=== PATIENT | female | born 1970 | race Caucasian/White ===

== ENCOUNTER 2019-11-29 04:40 | Emergency (ER) | payer MEDICAID ==
[~2019-11-29] VITALS: Ht 160 cm; Wt 56.7 kg
--- NOTE | 2019-11-29 04:40 | NUR ---
PT BIBA TO ER BED 10
[2019-11-29 04:41] VITALS: BP 148/82
--- NOTE | 2019-11-29 04:50 | NUR ---
PT ASSESSMENT COMPLETE. PT LAYING FLAT AND ATTACHED TO FULL MONITORING SYSTEM. BEDRAIL X2 UP. WILL CONTINUE TO MONITOR.
--- NOTE | 2019-11-29 05:10 | NUR ---
PT SCREAMING OUT IN PAIN. PT REPORTS 9/[address] THORNTON MADE AWARE.
[2019-11-29] MEDS ORDERED: diphenhydrAMINE 50 MG/ML VIAL IM ONE (05:15)
[2019-11-29] MEDS ORDERED: MORPHINE SULFATE 4 MG/ML SYR IM ONE (05:15)
[2019-11-29] MEDS ORDERED: diphenhydrAMINE 50 MG/ML VIAL IVP ONE (05:45)
[2019-11-29] MEDS ORDERED: MORPHINE SULFATE 4 MG/ML SYR IVP ONE (05:45)
[2019-11-29] MEDS ORDERED: fentaNYL 0.05 MG/ML VIAL IVP ONE (06:10)
--- NOTE | 2019-11-29 06:35 | NUR ---
RAD AT BEDSIDE.
--- NOTE | 2019-11-29 06:50 | NUR ---
PT SEEN WITH EYES CLOSED AND LYING SUPINE. VISIBLE CHEST RISE AND FALL NOTED.
--- NOTE | 2019-11-29 07:13 | NUR ---
BEDSIDE REPORT GIVEN TO MANUEL TANG. TRANSFER OF CARE AT THIS TIME.
--- NOTE | 2019-11-29 07:41 | NUR ---
PT REASSED FOR PAIN. PT STATES LESS PAIN, RESTING COMFORTABLY.
--- NOTE | 2019-11-29 08:47 | NUR ---
Patient discharged with v/s stable. Written and verbal after care instructions given and explained. Patient alert, oriented and verbalized understanding of instructions. Ambulatory with steady gait. All questions addressed prior to discharge. ID band removed. Patient advised to follow up with PMD. Rx of TORODAL given. Patient educated on indication of medication including possible reaction and side effects. Opportunity to ask questions provided and answered.
[2019-11-29 08:48] VITALS: BP 107/66
== END 2019-11-29 08:47 | disposition home or self-care (01) ==
LOC: MED 04:40
DX: S70.01XA Contusion of right hip, initial encounter (principal); G89.29 Other chronic pain; M54.30 Sciatica, unspecified side; Z88.0 Allergy status to penicillin; W19.XXXA Unspecified fall, initial encounter; Y93.89 Activity, other specified; Y92.89 Other specified places as the place of occurrence of the external cause; Y99.8 Other external cause status
CPT/HCPCS: 71045; 73502; 96374; 96375; 99283; J1200; J2270; J3010; Q0092